=== PATIENT | female | born 1995 | race Hispanic/Latino ===

== ENCOUNTER 2019-10-30 11:41 | Emergency (ER) | payer SELFPAY ==
[2019-10-30 12:35] VITALS: BP 138/72
--- NOTE | 2019-10-30 12:36 | Event Note ---
ED Screening Note Date of service: 10/30/19 Time: 12:34 ED Screening Note: 24 y o f presents with dizziness and lightheadedness began last night after couple episodes of vomitting denies abd pain/ diarhrea/ f/ or any other symptoms This initial assessment/diagnostic orders/clinical plan/treatment(s) is/are subject to change based on patients health status, clinical progression and re- assessment by fellow clinical providers in the ED. Further treatment and workup at subsequent clinical providers discretion. Patient/guardian urged not to elope from the ED as their condition may be serious if not clinically assessed and managed. Initial orders include: cbc,bmp ua,upt acc eval
== END 2019-10-30 19:42 | disposition left against medical advice (07) ==
LOC: ED 11:41
DX: E86.0 Dehydration (principal); R42 Dizziness and giddiness; Z53.21 Procedure and treatment not carried out due to patient leaving prior to being seen by health care provider